=== PATIENT | female | born 1980 | race Caucasian/White ===

== ENCOUNTER → 2020-02-02 | Outpatient (CLI) | payer MEDICAID, OTHER ==
[~2020-02-02] MED LIST: FERR325T6 MT; IBUP-2030 MT; MULT-1116 MT
== END | disposition home or self-care (01) ==
LOC: LAB 11:08
PROVIDERS: ATTEND Obstetrics & Gynecology
DX: Z03.818 Encounter for observation for suspected exposure to other biological agents ruled out (principal)
CPT/HCPCS: U0003-CS

== ENCOUNTER 2023-07-07 10:18 | Emergency (ER) | payer MEDICAID, OTHER ==
[~2023-07-07] VITALS: Ht 152.4 cm; Wt 82.0 kg
[2023-07-07 10:26] VITALS: O2SAT 100
[2023-07-07] MEDS ORDERED: MECLIZINE 25MG TABLET PO ONE (12:00)
[2023-07-07] MEDS ORDERED: ONDANSETRON HCL 4MG TABLET PO ONE (12:00)
[2023-07-07] MEDS ORDERED: MECL-299 PO (12:49)
[2023-07-07 13:08] VITALS: BP 128/74; PULSE 80; RESP 16; TEMP 98
== END 2023-07-07 13:09 | disposition home or self-care (01) ==
LOC: ER 10:18
DX: R42 Dizziness and giddiness (principal); Z98.890 Other specified postprocedural states
CPT/HCPCS: 99283; J8597; Q0162